=== PATIENT | male | born 1985 | race Caucasian/White ===

== ENCOUNTER 2016-12-26 12:10 | Inpatient (IN) | payer OTHER ==
[2016-12-26 14:34] VITALS: BMI 21.5
--- NOTE | 2016-12-26 17:24 | HP ---
CIWA Score - CIWA Score Nausea/Vomitin-Mild Nausea/No Vomiting Muscle Tremors: 4-Moderate,w/Arms Extend Anxiety: 4-Mod. Anxious/Guarded Agitation: 4-Moderately Restless Paroxysmal Sweats: 1-Minimal Palms Moist Orientation: 0-Oriented Tacttile Disturbances: 0-None Auditory Disturbances: 0-None Visual Disturbances: 0-None Headache: 2-Mild CIWA-Ar Total Score: 16 Admission ROS BHS - HPI Chief Complaint: withdrawal sx Allergies/Adverse Reactions: Allergies Allergy/AdvReac Type Severity Reaction Status Date / Time haloperidol [From Haldol] Allergy Severe Swelling Verified 12/26/16 18:59 haloperidol lactate Allergy Severe Swelling Verified 12/26/16 18:59 [From Haldol] History of Present Illness: 31 years old male with long history of alcohol nicotine marijuana dependence has alcohol withdrawal related seizure and hypertension and bipolar ii is admitted to detox Exam Limitations: No Limitations - Ebola screening Have you traveled outside of the country in the last 21 days: No Have you had contact with anyone from an Ebola affected area: No Have you been sick,other than usual withdrawal symptoms: No Do you have a fever: No - Review of Systems Constitutional: Chills, Loss of Appetite, Changes in sleep, Unintentional Wgt. Loss, Unexplained wgt Loss EENT: reports: See HPI Respiratory: reports: No Symptoms reported Cardiac: reports: No Symptoms Reported GI: reports: Nausea, Poor Appetite, Poor Fluid Intake, Abdominal cramping : reports: No Symptoms Reported Musculoskeletal: reports: Back Pain Integumentary: reports: No Symptoms Reported Neuro: reports: Seizure (last episode 2014), Tremors Endocrine: reports: No Symptoms Reported Hematology: reports: No Symptoms Reported Psychiatric: reports: Judgement Intact, Orientated x3, Anxious, Depressed Other Systems: Reviewed and Negative Patient History - Patient Medical History Hx Anemia: No Hx Asthma: No Hx Chronic Obstructive Pulmonary Disease (COPD): No Hx Cancer: No Hx Cardiac Disorders: No Hx Congestive Heart Failure: No Hx Hypertension: No Hx Hypercholesterolemia: No Hx Pacemaker: No HX Cerebrovascular Accident: No Hx Seizures: No Hx Diabetes: No Hx Gastrointestinal Disorders: Yes (PANCREATITIS) Hx Liver Disease: Yes Hx Genitourinary Disorders: No Hx Sexually Transmitted Disorders: No Hx Renal Disease (ESRD): No Hx Thyroid Disease: No Hx Human Immunodeficiency Virus (HIV): No Hx Hepatitis C: Yes Hx Depression: No Hx Suicide Attempt: No Hx Bipolar Disorder: Yes Hx Schizophrenia: No - Patient Surgical History Past Surgical History: No Hx Neurologic Surgery: No Hx Cataract Extraction: No Hx Cardiac Surgery: No Hx Lung Surgery: No Hx Breast Surgery: No Hx Breast Biopsy: No Hx Abdominal Surgery: No Hx Appendectomy: No Hx Cholecystectomy: No Hx Genitourinary Surgery: No Hx Orthopedic Surgery: No - PPD History Previous Implant?: Yes Documented Results: Negative w/proof Implanted On Prior [facility] Admission?: Yes Date: 12/17/14 PPD to be Administered?: Yes - Smoking Cessation Smoking history: Current every day smoker Have you smoked in the past 12 months: Yes Aproximately how many cigarettes per day: 10 Cigars Per Day: 0 Hx Chewing Tobacco Use: No Initiated information on smoking cessation: Yes 'Breaking Loose' booklet given: 12/26/16 - Substance & Tx. History Hx Alcohol Use: Yes Hx Substance Use: Yes Substance Use Type: Alcohol, Marijuana Hx Substance Use Treatment: Yes - Substances Abused Alcohol Route: Oral Frequency: Daily Amount used: 2 volka Lit Age of first use: 12 Date of Last Use: 12/26/16 Family Disease History - Family Disease History Family Disease History: Heart Disease: Father ([place],ALCOHOLIC), Mother (USES CANNABIS,MYOCARDITIS), Other: Father, Mother Admission Physical Exam BHS - Vital Signs Vital Signs: Vital Signs - 24 hr 12/26/16 14:32 Temperature 98.1 F Pulse Rate 90 Respiratory 20 Rate Blood Pressure 150/94 - Physical General Appearance: Yes: Appropriately Dressed, Mild Distress, Alcohol on Breath , Thin, Tremorous, Irritable, Sweating, Anxious HEENTM: Yes: Hearing grossly Normal, Normal ENT Inspection, Normocephalic, Normal Voice Respiratory: Yes: Chest Non-Tender, Lungs Clear, Normal Breath Sounds, No Respiratory Distress, No Accessory Muscle Use Neck: Yes: Supple, Trachea in good position Breast: Yes: Breasts Symetrical Cardiology: Yes: Regular Rhythm, S1, S2, Tachycardia Abdominal: Yes: Non Tender, Soft Genitourinary: Yes: Within Normal Limits Back: Yes: Normal Inspection Musculoskeletal: Yes: full range of Motion, Gait Steady Extremities: Yes: Normal Range of Motion, Non-Tender, Tremors Neurological: Yes: Alert, Motor Strength 5/5, Normal Response, Depressed Affect Integumentary: Yes: Warm, Clammy Lymphatic: Yes: Within Normal Limits - Diagnostic (1) Alcohol dependence with uncomplicated withdrawal Current Visit: Yes Status: Acute (2) Cocaine dependence, uncomplicated Current Visit: Yes Status: Chronic (3) Hypertension Current Visit: Yes Status: Chronic Qualifiers: Hypertension type: other secondary hypertension Qualified Code(s): I15.8 - Other secondary hypertension Comment: alcohol withdrawa related (4) Seizure Current Visit: Yes Status: Chronic Comment: alcohol related (5) Nicotine dependence Current Visit: Yes Status: Acute Qualifiers: Nicotine product type: cigarettes Substance use status: in withdrawal Qualified Code(s): F17.213 - Nicotine dependence, cigarettes, with withdrawal (6) GERD (gastroesophageal reflux disease) Current Visit: Yes Status: Chronic Qualifiers: Esophagitis presence: without esophagitis Qualified Code(s): K21.9 - Gastro-esophageal reflux disease without esophagitis (7) Weight loss Current Visit: Yes Status: Acute (8) Hepatitis C antibody test positive Current Visit: Yes Status: Chronic Comment: schedule to treat (9) Chronic pancreatitis Current Visit: Yes Status: Chronic Qualifiers: Pancreatitis type: alcohol induced Qualified Code(s): K86.0 - Alcohol-induced chronic pancreatitis (10) Bipolar II disorder Current Visit: Yes Status: Suspected Cleared for Admission [facility] - Detox or Rehab [facility] Level of Care: Medically Managed Detox Regimen/Protocol: Librium [facility] Breath Alcohol Content Breath Alcohol Content: 0.135 Urine Drug Screen - Results Drug Screen Negative: No Urine Drug Screen Results: THC-Marijuana
[2016-12-26] MEDS ORDERED: MAGNESIUM CITRATE 300 ML BOTTLE PO PRN (17:28)
[2016-12-26] MEDS ORDERED: guaiFENesin/D-METHORPHAN HB 10 ML UNIT-DOSE CUPS PO PRN (17:28)
[2016-12-26] MEDS ORDERED: MAGNESIUM HYDROX 2400MG/30ML ORAL SUSPENSION 30 ML CUP PO PRN (17:28)
[2016-12-26] MEDS ORDERED: MENTHOL/PHENOL 1 EACH UD MM PRN (17:28)
[2016-12-26] MEDS ORDERED: LOPERAMIDE HCL 2 MG CAPSULE PO PRN (17:28)
[2016-12-26] MEDS ORDERED: P-EPHED 60MG/TRIPROLIDI 2.5MG TABLET PO PRN (17:28)
[2016-12-26] MEDS ORDERED: chlordiazePOXIDE HCL 25 MG CAPSULE PO PRN (17:28)
[2016-12-26] MEDS ORDERED: MAG HYDROX/AL HYDROX/SIMETH 30 ML UNIT-DOSE CUP PO PRN (17:28)
[2016-12-26] MEDS ORDERED: ACETAMINOPHEN 325 MG TABLET (FP) PO PRN (17:28)
[2016-12-26] MEDS ORDERED: RANITIDINE HCL 150 MG TABLET (FP) PO PRN (17:31)
[2016-12-26] MEDS ORDERED: NICOTINE 14 MG/24 HOURS TOPICAL PATCH TD PRN (18:00)
[2016-12-26] MEDS: cloNIDine HCL 0.1 MG TABLET PO PRN (19:54)
[2016-12-26 20:04] LABS: URINE APPEARANCE CLEAR; URINE BILIRUBIN NEGATIVE (NEGATIVE); URINE BLOOD NEGATIVE (NEGATIVE); URINE COLOR DKYELLOW; URINE GLUCOSE (UA) NEGATIVE (NEGATIVE); URINE KETONE NEGATIVE (NEGATIVE); URINE LEUK ESTERASE NEGATIVE (NEGATIVE); URINE NITRITE NEGATIVE (NEGATIVE); URINE UROBILINOGEN 2.0 E.U/dl E.U./dl (0.2-1.0)
[2016-12-26 20:16] LABS: URINE PROTEIN 2+ (NEGATIVE)
[2016-12-26 20:19] LABS: CALCIUM OXALATE CRYSTALS RARE /hpf (NONE SEEN); URINE MUCUS RARE; URINE RBC 1 /hpf (0-3); URINE WBC 2 /hpf (3-5)
[2016-12-26] MEDS: NICOTINE POLACRILEX 2 MG GUM BC PRN (21:50)
[2016-12-26] MEDS: THIAMINE HCL 100 MG TABLET (FP) PO SCH (22:40)
[2016-12-26] MEDS: chlordiazePOXIDE HCL 25 MG CAPSULE PO SCH (22:40)
[2016-12-26] MEDS: diphenhydrAMINE HCL 50 MG CAPSULE PO PRN (22:40)
[2016-12-27] MEDS: chlordiazePOXIDE HCL 25 MG CAPSULE PO SCH ×4 (05:52→22:39)
[2016-12-27] MEDS: NICOTINE POLACRILEX 2 MG GUM BC PRN ×3 (09:32→22:40)
--- NOTE | 2016-12-27 09:35 | CONSULT ---
[facility] Psychiatric Consult - Data Date of interview: 12/27/16 Admission source: [facility] Identifying data: Readmission to [facility] for this 31 y/o male seeking detox treatment for alcohol and cannabis dependence.Patient is single, without children,homeless,unemployed and deprived of financial support. Substance Abuse History: - Smoking Cessation. Smoking history: Current every day smoker. Have you smoked in the past 12 months: Yes. Aproximately how many cigarettes per day: 10. Cigars Per Day: 0. Hx Chewing Tobacco Use: No. Initiated information on smoking cessation: Yes. 'Breaking Loose' booklet given : 12/26/16. - Substance & Tx. History. Hx Alcohol Use: Yes. Hx Substance Use : Yes. Substance Use Type: Alcohol, Marijuana. Hx Substance Use Treatment: Yes. - Substances Abused. Alcohol. Route: Oral. Frequency: Daily. Amount used: 2 volka Lit. Age of first use: 12. Date of Last Use: 12/26/16. Confirmed by patient. Medical History: Hepatitis C,GERD,seizure disorder,hypertension and a history of pancreatitis. Psychiatric History: No reported history of psychiatric hospitalizations (only CPEP visits at [facility]).Mr Escoto recalls that he was given the diagnosis of Bipolar Disorder in 2008 on a rehabilitation unit.Dropped out of [facility] care after discharge.Never resumed medications.Patient denies history of suicide attempts. Physical/Sexual Abuse/Trauma History: Patient denies. Additional Comment: Urine Drug Screen Results: THC-Marijuana.Noted. Mental Status Exam - Mental Status Exam Alert and Oriented to: Time, Place, Person Cognitive Function: Good Patient Appearance: Well Groomed Mood: Hopeful, Euthymic Affect: Appropriate, Normal Range Patient Behavior: Appropriate, Cooperative Speech Pattern: Clear, Appropriate Voice Loudness: Normal Thought Process: Goal Oriented Thought Disorder: Not Present Hallucinations: Denies Suicidal Ideation: Denies Insight/Judgement: Poor Sleep: Fair Appetite: Good Muscle strength/Tone: Normal Gait/Station: Normal Psychiatric Findings - Problem List ([place] 1, 2,3) (1) Alcohol dependence with uncomplicated withdrawal Current Visit: Yes Status: Acute (2) Cannabis dependence Current Visit: Yes Status: Acute (3) Nicotine dependence Current Visit: Yes Status: Acute Qualifiers: Nicotine product type: cigarettes Substance use status: in withdrawal Qualified Code(s): F17.213 - Nicotine dependence, cigarettes, with withdrawal (4) Substance induced mood disorder Current Visit: Yes Status: Acute (5) Chronic pancreatitis Current Visit: Yes Status: Chronic Qualifiers: Pancreatitis type: alcohol induced Qualified Code(s): K86.0 - Alcohol-induced chronic pancreatitis (6) GERD (gastroesophageal reflux disease) Current Visit: Yes Status: Chronic Qualifiers: Esophagitis presence: without esophagitis Qualified Code(s): K21.9 - Gastro-esophageal reflux disease without esophagitis (7) Hepatitis C antibody test positive Current Visit: Yes Status: Chronic Comment: schedule to treat (8) Hypertension Current Visit: Yes Status: Chronic Qualifiers: Hypertension type: other secondary hypertension Qualified Code(s): I15.8 - Other secondary hypertension Comment: alcohol withdrawa related (9) Seizure Current Visit: Yes Status: Chronic Comment: alcohol related - Initial Treatment Plan Initial Treatment Plan: Psychoeducation.Detoxification.Observation.
[2016-12-27] MEDS: PRENATAL VITAMINS W/ FOLIC ACID TABLET (FP) PO SCH (10:31)
[2016-12-27] MEDS: hydrOXYzine PAMOATE 50 MG CAPSULE (FP) PO PRN ×2 (10:32→22:41)
--- NOTE | 2016-12-27 11:24 | EKG ---
Test Reason : Blood Pressure : / mmHG Vent. Rate : 067 BPM Atrial Rate : 067 BPM P-R Int : 148 ms QRS Dur : 084 ms QT Int : 428 ms P-R-T Axes : -02 064 039 degrees QTc Int : 452 ms NORMAL SINUS RHYTHM NONSPECIFIC T WAVE ABNORMALITY ABNORMAL ECG NO PREVIOUS ECGS AVAILABLE Confirmed by SALLY LOPEZ MD ([id number]) on 12/27/2016 11:24:16 AM Referred By: Confirmed By:SALLY LOPEZ MD
[2016-12-27 11:27] LABS: MCH 35.1 pg (25.7-33.7); MCHC 33.9 g/dl (32.0-35.9); MEAN CELL VOLUME 103.3 fl (80-96); MEAN PLT VOLUME 7.6 fl (7.5-11.1); PLATELET COUNT 142 K/MM3 (134-434); RDW 13.2 % (11.9-15.9); WHITE BLOOD COUNT 4.6 K/mm3 (4.0-10.0)
--- NOTE | 2016-12-27 11:33 | PN ---
S CIWA - CIWA Score Nausea/Vomitin-No Nausea/No Vomiting Muscle Tremors: 4-Moderate,w/Arms Extend Anxiety: 4-Mod. Anxious/Guarded Agitation: 4-Moderately Restless Paroxysmal Sweats: 1-Minimal Palms Moist Orientation: 0-Oriented Tacttile Disturbances: 3-Moderate Itch/Numb/Burn Auditory Disturbances: 3-Moderate Harsh/Frighten Visual Disturbances: 0-None Headache: 0-None Present CIWA-Ar Total Score: 19 BHS Progress Note (SOAP) Subjective: ANXIETY,TREMORS, ANXIETY. Objective: 12/27/16 11:32 Vital Signs Temperature 96.5 F L 12/27/16 10:06 Pulse Rate 83 12/27/16 10:06 Respiratory Rate 18 12/27/16 10:06 Blood Pressure 119/80 12/27/16 10:06 O2 Sat by Pulse Oximetry (%) Laboratory Last Values WBC 4.6 K/mm3 (4.0-10.0) D 12/27/16 07:00 RBC 3.60 M/mm3 (4.00-5.60) L 12/27/16 07:00 Hgb 12.6 GM/dL (11.7-16.9) 12/27/16 07:00 Hct 37.2 % (35.4-49) 12/27/16 07:00 MCV 103.3 fl (80-96) H 12/27/16 07:00 MCHC 33.9 g/dl (32.0-35.9) 12/27/16 07:00 RDW 13.2 % (11.9-15.9) 12/27/16 07:00 Plt Count 142 K/MM3 (134-434) 12/27/16 07:00 MPV 7.6 fl (7.5-11.1) 12/27/16 07:00 Urine Color Dkyellow 12/26/16 19:30 Urine Appearance Clear 12/26/16 19:30 Urine pH 6.0 (5.0-8.0) 12/26/16 19:30 Ur Specific [place] 1.020 (1.001-1.035) 12/26/16 19:30 Urine Protein 2+ (NEGATIVE) H 12/26/16 19:30 Urine Glucose (UA) Negative (NEGATIVE) 12/26/16 19:30 Urine Ketones Negative (NEGATIVE) 12/26/16 19:30 Urine Blood Negative (NEGATIVE) 12/26/16 19:30 Urine Nitrite Negative (NEGATIVE) 12/26/16 19:30 Urine Bilirubin Negative (NEGATIVE) 12/26/16 19:30 Urine Urobilinogen 2.0 e.u/dl E.U./dl (0.2-1.0) 12/26/16 19:30 Ur Leukocyte Esterase Negative (NEGATIVE) 12/26/16 19:30 Urine RBC 1 /hpf (0-3) 12/26/16 19:30 Urine WBC 2 /hpf (3-5) 12/26/16 19:30 Ur Epithelial Cells Rare /hpf (FEW) 12/26/16 19:30 Calcium Oxalate Crystal Rare /hpf (NONE SEEN) 12/26/16 19:30 Urine Mucus Rare 12/26/16 19:30 Assessment: 12/27/16 11:33 WITHDRAWAL SX Plan: CONTINUE DETOX
[2016-12-27 11:45] LABS: ALBUMIN 3.1 g/dl (3.4-5.0); ALK PHOS 91 U/L (45-117); ANION GAP 8 (8-16); BILIRUBIN,TOTAL 0.6 mg/dL (0.2-1.0); CALCIUM 8.3 mg/dL (8.5-10.1); CO2 30 mmol/L (21-32); COCKROFT - GAULT 145.79; CREATININE 0.7 mg/dL (0.7-1.3); GLUCOSE,RANDOM 92 mg/dL (74-106); SGOT/AST 41 U/L (15-37); SGPT/ALT 27 U/L (12-78); TOT PROT 6.4 g/dl (6.4-8.2)
[2016-12-27] MEDS: THIAMINE HCL 100 MG TABLET (FP) PO SCH (22:39)
[2016-12-28] MEDS: chlordiazePOXIDE HCL 25 MG CAPSULE PO SCH ×3 (05:27→18:21)
[2016-12-28] MEDS: hydrOXYzine PAMOATE 50 MG CAPSULE (FP) PO PRN ×2 (05:29→10:40)
[2016-12-28] MEDS: NICOTINE POLACRILEX 2 MG GUM BC PRN ×5 (05:37→22:46)
[2016-12-28] MEDS: PRENATAL VITAMINS W/ FOLIC ACID TABLET (FP) PO SCH (10:38)
--- NOTE | 2016-12-28 14:22 | PN ---
S CIWA - CIWA Score Nausea/Vomitin Muscle Tremors: 3 Anxiety: 3 Agitation: 3 Paroxysmal Sweats: 3 Orientation: 0-Oriented Tacttile Disturbances: 1-Very Mild Itch/Numbness Auditory Disturbances: 0-None Visual Disturbances: 0-None Headache: 2-Mild CIWA-Ar Total Score: 17 S Progress Note (SOAP) Subjective: Anxiety, tremors, sweats and muscle ache Objective: 12/28/16 14:21 Vital Signs - 8 hr 12/28/16 12/28/16 06:51 09:47 Temperature 97.1 F L 97.2 F L Pulse Rate 68 62 Respiratory 18 18 Rate Blood Pressure 138/86 118/84 Laboratory Last Values WBC 4.6 K/mm3 (4.0-10.0) D 12/27/16 07:00 RBC 3.60 M/mm3 (4.00-5.60) L 12/27/16 07:00 Hgb 12.6 GM/dL (11.7-16.9) 12/27/16 07:00 Hct 37.2 % (35.4-49) 12/27/16 07:00 MCV 103.3 fl (80-96) H 12/27/16 07:00 MCHC 33.9 g/dl (32.0-35.9) 12/27/16 07:00 RDW 13.2 % (11.9-15.9) 12/27/16 07:00 Plt Count 142 K/MM3 (134-434) 12/27/16 07:00 MPV 7.6 fl (7.5-11.1) 12/27/16 07:00 Sodium 137 mmol/L (136-145) 12/27/16 07:00 Potassium 3.5 mmol/L (3.5-5.1) 12/27/16 07:00 Chloride 99 mmol/L (98-107) 12/27/16 07:00 Carbon Dioxide 30 mmol/L (21-32) 12/27/16 07:00 Anion Gap 8 (8-16) 12/27/16 07:00 BUN 5 mg/dL (7-18) L D 12/27/16 07:00 Creatinine 0.7 mg/dL (0.7-1.3) D 12/27/16 07:00 Creat Clearance w eGFR > 60 (>60) 12/27/16 07:00 Random Glucose 92 mg/dL (74-106) 12/27/16 07:00 Calcium 8.3 mg/dL (8.5-10.1) L 12/27/16 07:00 Total Bilirubin 0.6 mg/dL (0.2-1.0) D 12/27/16 07:00 AST 41 U/L (15-37) H 12/27/16 07:00 ALT 27 U/L (12-78) 12/27/16 07:00 Alkaline Phosphatase 91 U/L (45-117) 12/27/16 07:00 Total Protein 6.4 g/dl (6.4-8.2) 12/27/16 07:00 Albumin 3.1 g/dl (3.4-5.0) L 12/27/16 07:00 Urine Color Dkyellow 12/26/16 19:30 Urine Appearance Clear 12/26/16 19:30 Urine pH 6.0 (5.0-8.0) 12/26/16 19:30 Ur Specific [place] 1.020 (1.001-1.035) 12/26/16 19:30 Urine Protein 2+ (NEGATIVE) H 12/26/16 19:30 Urine Glucose (UA) Negative (NEGATIVE) 12/26/16 19:30 Urine Ketones Negative (NEGATIVE) 12/26/16 19:30 Urine Blood Negative (NEGATIVE) 12/26/16 19:30 Urine Nitrite Negative (NEGATIVE) 12/26/16 19:30 Urine Bilirubin Negative (NEGATIVE) 12/26/16 19:30 Urine Urobilinogen 2.0 e.u/dl E.U./dl (0.2-1.0) 12/26/16 19:30 Ur Leukocyte Esterase Negative (NEGATIVE) 12/26/16 19:30 Urine RBC 1 /hpf (0-3) 12/26/16 19:30 Urine WBC 2 /hpf (3-5) 12/26/16 19:30 Ur Epithelial Cells Rare /hpf (FEW) 12/26/16 19:30 Calcium Oxalate Crystal Rare /hpf (NONE SEEN) 12/26/16 19:30 Urine Mucus Rare 12/26/16 19:30 RPR Titer Nonreactive (NONREACTIVE) 12/27/16 07:00 labs noted Assessment: 12/28/16 14:21 withdrawal sx Plan: continue detox
[2016-12-28] MEDS: THIAMINE HCL 100 MG TABLET (FP) PO SCH (22:42)
[2016-12-28] MEDS: chlordiazePOXIDE 5 MG CAPSULE PO SCH (22:42)
[2016-12-28] MEDS: cloNIDine HCL 0.1 MG TABLET PO PRN (22:43)
[2016-12-28] MEDS: diphenhydrAMINE HCL 50 MG CAPSULE PO PRN (22:44)
[2016-12-29] MEDS: chlordiazePOXIDE 5 MG CAPSULE PO SCH ×3 (06:13→17:12)
[2016-12-29] MEDS: cloNIDine HCL 0.1 MG TABLET PO PRN (06:16)
[2016-12-29] MEDS: NICOTINE POLACRILEX 2 MG GUM BC PRN ×3 (10:43→20:35)
[2016-12-29] MEDS: PRENATAL VITAMINS W/ FOLIC ACID TABLET (FP) PO SCH (10:43)
[2016-12-29] MEDS: hydrOXYzine PAMOATE 50 MG CAPSULE (FP) PO PRN ×2 (10:45→17:14)
--- NOTE | 2016-12-29 16:37 | PN ---
BHS Progress Note (SOAP) Subjective: Anxious, restless, sweating, tremor Objective: 12/29/16 16:36 Last Vital Signs Temp Pulse Resp BP Pulse Ox 96.0 F L 70 18 135/94 12/29/16 14:03 12/29/16 14:03 12/29/16 14:03 12/29/16 14:03 Laboratory Tests 12/26/16 12/27/16 12/27/16 19:30 07:00 07:00 WBC 4.6 D RBC 3.60 L Hgb 12.6 Hct 37.2 MCV 103.3 H MCHC 33.9 RDW 13.2 Plt Count 142 MPV 7.6 Sodium 137 Potassium 3.5 Chloride 99 Carbon Dioxide 30 Anion Gap 8 BUN 5 L D Creatinine 0.7 D Creat Clearance w eGFR > 60 Random Glucose 92 Calcium 8.3 L Total Bilirubin 0.6 D AST 41 H ALT 27 Alkaline Phosphatase 91 Total Protein 6.4 Albumin 3.1 L Urine Color Dkyellow Urine Appearance Clear Urine pH 6.0 Ur Specific [place] 1.020 Urine Protein 2+ H Urine Glucose (UA) Negative Urine Ketones Negative Urine Blood Negative Urine Nitrite Negative Urine Bilirubin Negative Urine Urobilinogen 2.0 e.u/dl Ur Leukocyte Esterase Negative Urine RBC 1 Urine WBC 2 Ur Epithelial Cells Rare Calcium Oxalate Crystal Rare Urine Mucus Rare RPR Titer 12/27/16 07:00 WBC RBC Hgb Hct MCV MCHC RDW Plt Count MPV Sodium Potassium Chloride Carbon Dioxide Anion Gap BUN Creatinine Creat Clearance w eGFR Random Glucose Calcium Total Bilirubin AST ALT Alkaline Phosphatase Total Protein Albumin Urine Color Urine Appearance Urine pH Ur Specific [place] Urine Protein Urine Glucose (UA) Urine Ketones Urine Blood Urine Nitrite Urine Bilirubin Urine Urobilinogen Ur Leukocyte Esterase Urine RBC Urine WBC Ur Epithelial Cells Calcium Oxalate Crystal Urine Mucus RPR Titer Nonreactive Labs noted: UA with 2+ protein Assessment: 12/29/16 16:37 Withdrawal symptoms Noted with proteinuria Plan: Continue detox Proteinuria: encouraged to drink lots of water, repeat UA
[2016-12-29] MEDS: chlordiazePOXIDE HCL 10 MG CAPSULE PO SCH (22:51)
[2016-12-29] MEDS: THIAMINE HCL 100 MG TABLET (FP) PO SCH (22:51)
[2016-12-29] MEDS: diphenhydrAMINE HCL 50 MG CAPSULE PO PRN (22:51)
[2016-12-30] MEDS: chlordiazePOXIDE HCL 10 MG CAPSULE PO SCH (05:58)
[2016-12-30] MEDS: hydrOXYzine PAMOATE 50 MG CAPSULE (FP) PO PRN (06:00)
[2016-12-30] MEDS: NICOTINE POLACRILEX 2 MG GUM BC PRN (06:01)
[2016-12-30] MEDS: cloNIDine HCL 0.1 MG TABLET PO PRN (06:02)
[2016-12-30 06:22] VITALS: TEMP 97
[2016-12-30 07:04] VITALS: BP 127/84; PULSE 80
--- NOTE | 2016-12-31 13:14 | DS ---
[facility] Detox Discharge Summary Admission Date: 12/26/16 Discharge Date: 12/30/16 - History Present History: Alcohol Dependence Pertinent Past History: GERD Hep C HTN - Physical Exam Results Vital Signs: Vital Signs Temperature 97 F L 12/30/16 06:21 Pulse Rate 80 12/30/16 07:04 Respiratory Rate 18 12/30/16 06:21 Blood Pressure 127/84 12/30/16 07:04 O2 Sat by Pulse Oximetry (%) Pertinent Admission Physical Exam Findings: Withdrawal sx. Laboratory Last Values WBC 4.6 K/mm3 (4.0-10.0) D 12/27/16 07:00 RBC 3.60 M/mm3 (4.00-5.60) L 12/27/16 07:00 Hgb 12.6 GM/dL (11.7-16.9) 12/27/16 07:00 Hct 37.2 % (35.4-49) 12/27/16 07:00 MCV 103.3 fl (80-96) H 12/27/16 07:00 MCHC 33.9 g/dl (32.0-35.9) 12/27/16 07:00 RDW 13.2 % (11.9-15.9) 12/27/16 07:00 Plt Count 142 K/MM3 (134-434) 12/27/16 07:00 MPV 7.6 fl (7.5-11.1) 12/27/16 07:00 Sodium 137 mmol/L (136-145) 12/27/16 07:00 Potassium 3.5 mmol/L (3.5-5.1) 12/27/16 07:00 Chloride 99 mmol/L (98-107) 12/27/16 07:00 Carbon Dioxide 30 mmol/L (21-32) 12/27/16 07:00 Anion Gap 8 (8-16) 12/27/16 07:00 BUN 5 mg/dL (7-18) L D 12/27/16 07:00 Creatinine 0.7 mg/dL (0.7-1.3) D 12/27/16 07:00 Creat Clearance w eGFR > 60 (>60) 12/27/16 07:00 Random Glucose 92 mg/dL (74-106) 12/27/16 07:00 Calcium 8.3 mg/dL (8.5-10.1) L 12/27/16 07:00 Total Bilirubin 0.6 mg/dL (0.2-1.0) D 12/27/16 07:00 AST 41 U/L (15-37) H 12/27/16 07:00 ALT 27 U/L (12-78) 12/27/16 07:00 Alkaline Phosphatase 91 U/L (45-117) 12/27/16 07:00 Total Protein 6.4 g/dl (6.4-8.2) 12/27/16 07:00 Albumin 3.1 g/dl (3.4-5.0) L 12/27/16 07:00 Urine Color Dkyellow 12/26/16 19:30 Urine Appearance Clear 12/26/16 19:30 Urine pH 6.0 (5.0-8.0) 12/26/16 19:30 Ur Specific [place] 1.020 (1.001-1.035) 12/26/16 19:30 Urine Protein 2+ (NEGATIVE) H 12/26/16 19:30 Urine Glucose (UA) Negative (NEGATIVE) 12/26/16 19:30 Urine Ketones Negative (NEGATIVE) 12/26/16 19:30 Urine Blood Negative (NEGATIVE) 12/26/16 19:30 Urine Nitrite Negative (NEGATIVE) 12/26/16 19:30 Urine Bilirubin Negative (NEGATIVE) 12/26/16 19:30 Urine Urobilinogen 2.0 e.u/dl E.U./dl (0.2-1.0) 12/26/16 19:30 Ur Leukocyte Esterase Negative (NEGATIVE) 12/26/16 19:30 Urine RBC 1 /hpf (0-3) 12/26/16 19:30 Urine WBC 2 /hpf (3-5) 12/26/16 19:30 Ur Epithelial Cells Rare /hpf (FEW) 12/26/16 19:30 Calcium Oxalate Crystal Rare /hpf (NONE SEEN) 12/26/16 19:30 Urine Mucus Rare 12/26/16 19:30 RPR Titer Nonreactive (NONREACTIVE) 12/27/16 07:00 labs noted - Treatment Hospital Course: Detox Protocol Followed, Detoxed Safely, Responded well, Discharged Condition Good, Rehab Referral Accepted Patient has Accepted a Rehab Referral to: 12 step meetings - Medication Discharge Medications: Ambulatory Orders Olanzapine [Zyprexa -] 5 mg PO DAILY 12/15/14 Quetiapine Fumarate [Seroquel -] 100 mg PO HS 12/26/16 - Diagnosis (1) Alcohol dependence with uncomplicated withdrawal Status: Acute (2) Cannabis dependence Status: Acute (3) Hepatitis C Status: Acute Qualifiers: Viral hepatitis chronicity: chronic Hepatic coma status: without hepatic coma Qualified Code(s): B18.2 - Chronic viral hepatitis C (4) Nicotine dependence Status: Acute Qualifiers: Nicotine product type: cigarettes Substance use status: in withdrawal Qualified Code(s): F17.213 - Nicotine dependence, cigarettes, with withdrawal (5) GERD (gastroesophageal reflux disease) Status: Chronic Qualifiers: Esophagitis presence: without esophagitis Qualified Code(s): K21.9 - Gastro-esophageal reflux disease without esophagitis (6) Hepatitis C antibody test positive Status: Chronic (7) Hypertension Status: Chronic Qualifiers: Hypertension type: other secondary hypertension Qualified Code(s): I15.8 - Other secondary hypertension (8) Substance induced mood disorder Status: Acute - AMA Did Patient Leave Against Medical Advice: No
== END 2016-12-30 09:57 | disposition home or self-care (01) | DRG 775 ==
LOC: YASAS 12:10 → Y3N 18:24
PROVIDERS: ADMIT Internal Medicine; ATTEND Internal Medicine
PROC: HZ2ZZZZ Detoxification Services for Substance Abuse Treatment (ICD-10-PCS; principal; 2016-12-26)
DX: F10.230 Alcohol dependence with withdrawal, uncomplicated (principal); F12.20 Cannabis dependence, uncomplicated; F17.210 Nicotine dependence, cigarettes, uncomplicated; F19.24 Other psychoactive substance dependence with psychoactive substance-induced mood disorder; F31.81 Bipolar II disorder; K86.0 Alcohol-induced chronic pancreatitis; K21.9 Gastro-esophageal reflux disease without esophagitis; I15.8 Other secondary hypertension; R00.0 Tachycardia, unspecified; Z86.69 Personal history of other diseases of the nervous system and sense organs; Z87.898 Personal history of other specified conditions
CPT/HCPCS: 36415; 80053; 81003; 81015; 85027; 86593; 93005; 93010